=== PATIENT | female | born 1950 | race Caucasian/White ===

== ENCOUNTER 2016-12-04 16:35 | Outpatient (CLI) | payer BC ==
--- NOTE | 2016-12-04 17:06 | RAD ---
4 VIEWS RIGHT KNEE: Date: 12/04/16 COMPARISON: None. HISTORY: Synovial cyst to the right popliteal space. FINDINGS: Four views of the right knee show no evidence of acute fracture or dislocation. No degenerative red ges are seen. No knee effusion is seen. No radiopaque mass is identified. IMPRESSION: Unremarkable exam. POS: [facility]
== END 2016-12-04 16:36 | disposition home or self-care (01) ==
LOC: MADRAD 16:35
PROVIDERS: ATTEND Obstetrics & Gynecology
DX: M71.21 Synovial cyst of popliteal space [Baker], right knee (principal)